=== PATIENT | male | born 1970 | race Caucasian/White ===

== ENCOUNTER 2021-03-27 05:51 | Day surgery (SDC) | payer BC ==
[2021-03-20 10:06] VITALS: BMI 39.1
[2021-03-27] MEDS ORDERED: BUPIVACAINE HCL/PF 0.25% (2.5MG/ML) 10 ML VIAL ONE (07:07)
[2021-03-27] MEDS ORDERED: PROPOFOL 20 ML ONE ×2 (07:25)
[2021-03-27 10:32] VITALS: TEMP 97.9
[2021-03-27 10:49] VITALS: BP 114/66; PULSE 64
[2021-03-27] MEDS ORDERED: oxyCODONE HCL 5 MG TABLET PO PRN (10:53)
== END 2021-03-27 10:40 | disposition home or self-care (01) ==
LOC: FASU 05:51
PROVIDERS: ATTEND Orthopaedic Surgery Sports Medicine
PROC: 0SBD4ZZ Excision of Left Knee Joint, Percutaneous Endoscopic Approach (ICD-10-PCS; principal; 2021-03-27 07:36)
PROC: 0SBD4ZZ Excision of Left Knee Joint, Percutaneous Endoscopic Approach (ICD-10-PCS; 2021-03-27 07:36)
DX: S83.242A Other tear of medial meniscus, current injury, left knee, initial encounter (principal); S83.282A Other tear of lateral meniscus, current injury, left knee, initial encounter; M22.42 Chondromalacia patellae, left knee; M65.9 Synovitis and tenosynovitis, unspecified; M23.42 Loose body in knee, left knee; X58.XXXA Exposure to other specified factors, initial encounter; Y93.9 Activity, unspecified; Y92.9 Unspecified place or not applicable
CPT/HCPCS: 88304-TC; 94760; 97116-GP